=== PATIENT | male | born 2005 | race Caucasian/White ===

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

== ENCOUNTER → 2023-04-10 | Outpatient (CLI) | payer OTHER ==
--- NOTE | 2023-04-10 12:11 | XR ---
EXAMINATION TYPE: XR lumbar spine 2 or 3V DATE OF EXAM: 04/10/2023 COMPARISON: None HISTORY: Back pain TECHNIQUE: 3 view lumbar spine FINDINGS: 5 lumbar type vertebral bodies. Pedicles are intact. Disc heights are preserved. Vertebral body heights are preserved. Alignment is normal. There is a 1.6 cm calcification mid right kidney. IMPRESSION: 1. Unremarkable three-view lumbar spine. 2. Right renal calcification
== END | disposition home or self-care (01) ==
LOC: RADXRMAIN 11:24
PROVIDERS: ATTEND Nurse Practitioner Family
DX: M54.9 Dorsalgia, unspecified (principal); N28.89 Other specified disorders of kidney and ureter
CPT/HCPCS: 72100

== ENCOUNTER → 2023-05-05 | Outpatient (CLI) | payer OTHER ==
[2023-05-05 18:50] LABS: Basophils # (A) 0.05 X 10*3/uL (0.00-0.10); Basophils % (A) 0.6 %; Eosinophils # (A) 0.08 X 10*3/uL (0.04-0.35); Eosinophils % (A) 0.9 %; HCT 43.5 % (39.6-50.0); HGB 14.8 g/dL (13.0-17.0); Lymphocytes # (A) 2.77 X 10*3/uL (0.90-5.00); Lymphocytes % (A) 31.2 %; MCH 29.2 pg (27.0-32.0); Mean Platelet Volume 11.8 FL (9.5-12.2); Monocytes # (A) 0.48 X 10*3/uL (0.20-1.00); Monocytes % (A) 5.4 %; NRBC Per 100 WBC 0 X 10*3/uL (0.00-0.01); Neutrophils # (A) 5.46 X 10*3/uL (1.80-7.70); Neutrophils % (A) 61.6 %; Platelet Count 350 X 10*3/uL (140-440); RBC 5.06 X 10*6/uL (4.40-5.60); RDW 13.2 % (11.5-14.5); WBC 8.87 X 10*3/uL (4.50-10.00)
[2023-05-05 20:06] LABS: BUN/Creat Ratio 12.56 Ratio (12.00-20.00); Blood Urea Nitrogen 11.3 mg/dL (9.0-27.0); Calcium 10.3 mg/dL (8.7-10.3); Carbon Dioxide 22.7 mmol/L (21.6-31.8); Chloride 103 mmol/L (96-109); Glucose 185 mg/dL (70-110); Potassium 4.5 mmol/L (3.5-5.5); Sodium 140 mmol/L (135-145)
== END | disposition home or self-care (01) ==
LOC: LABWHC1 13:43
PROVIDERS: ATTEND Urology
DX: Z01.812 Encounter for preprocedural laboratory examination (principal); N20.0 Calculus of kidney
CPT/HCPCS: 80048; 85025

== ENCOUNTER 2023-05-08 05:47 | Day surgery (SDC) | payer OTHER ==
--- NOTE | 2023-05-05 16:27 | P.GSHP ---
History of Present Illness H&P Date: 05/05/23 Chief Complaint: Low back pain The patient is a 17-year-old white male with no prior history of urolithiasis. The patient is recently experienced low back pain. Renal ultrasound shows a right renal calculus, with no evidence of hydronephrosis. KUB x-ray shows a 16 mm right renal calculus. He does have a family history of kidney stones. - Constitutional Constitutional: Denies chills, Denies fever - Gastrointestinal Gastrointestinal: Reports nausea - Genitourinary (Male) Genitourinary: Reports dysuria, Reports kidney stones, Denies hematuria Past Medical History Past Medical History: No Reported History, Diabetes Mellitus, GERD/Reflux, Hyperlipidemia, Hypertension Additional Past Medical History / Comment(s): kidney stones. History of Any Multi-Drug Resistant Organisms: None Reported Past Surgical History: No Surgical Hx Reported Additional Past Surgical History / Comment(s): wisdom teeth removed Past Anesthesia/Blood Transfusion Reactions: No Reported Reaction Smoking Status: Never smoker - Past Family History Father Family Medical History: Diabetes Mellitus Additional Family Medical History / Comment(s): gout Mother Family Medical History: Diabetes Mellitus, Hypertension Medications and Allergies Home Medications Medication Instructions Recorded Confirmed Type Lisdexamfetamine Dimesylate 60 mg PO QA 03/19/19 05/02/23 History [Vyvanse] ARIPiprazole [Aripiprazole] 20 mg PO DAILY 05/02/23 05/02/23 History Fenofibrate Nanocrystallized 145 mg PO DAILY 05/02/23 05/02/23 History [Fenofibrate] Omeprazole 20 mg PO HS 05/02/23 05/02/23 History Sertraline [Zoloft] 100 mg PO DAILY 05/02/23 05/02/23 History guanFACINE HCL [guanFACINE HCL ER] 4 mg PO DAILY 05/02/23 05/02/23 History lisinopriL [Zestril] 10 mg PO HS 05/02/23 05/02/23 History metFORMIN HCL ER [Glucophage XR] 1,000 mg PO HS 05/02/23 05/02/23 History Allergies Allergy/AdvReac Type Severity Reaction Status Date / Time amoxicillin Allergy Rash/Hives Verified 05/02/23 12:14 Penicillins Allergy Rash/Hives Verified 05/02/23 12:14 Surgical - Exam - General well developed, well nourished, no distress - Respiratory normal respiratory effort - Abdomen Abdomen: soft, non tender, no guarding, no rigid, no rebound - Genitourinary normal penis with no external lesions, testicles non-tender - Psychiatric oriented to time, oriented to person, oriented to place, speech is normal, memory intact Results - Imaging Abdominal x-ray: report reviewed, image reviewed Assessment and Plan (1) Calculus of kidney Status: Acute Code(s): N20.0 - CALCULUS OF KIDNEY SNOMED Code(s): 86434568 Plan: I had a lengthy discussion with the patient and his mother. We reviewed alternative treatment options, which consist of observation, extracorporal shockwave lithotripsy (ESWL), ureteroscopy with laser lithotripsy, and percutaneous nephrolithotomy (PCNL). The pros, cons, and risks of each were reviewed. The pros, cons, and risks of each were reviewed. They have chosen to undergo ureteroscopy with laser lithotripsy and stent placement. They are aware of potential risks, which include anesthesia, bleeding, infection, and ureteral injury. They are also aware of the possibility that because of the stone burden, a secondary procedure may be required.
[2023-05-08] MEDS ORDERED: LACTATED RINGERS 1,000 ML IV SCH (06:20)
[2023-05-08] MEDS ORDERED: ONDANSETRON 4 MG/2 ML VIAL IVP ONE (06:20)
[2023-05-08] MEDS ORDERED: LIDOCAINE 1% (10MG/ML) FOR IV START INTRADERMA PRN (06:20)
[2023-05-08] MEDS ORDERED: droPERidol 5 MG/2 ML VIAL IVP ONE (06:20)
--- NOTE | 2023-05-08 06:21 | XR ---
EXAMINATION TYPE: XR KUB DATE OF EXAM: 05/08/2023 6:14 AM CLINICAL HISTORY: Right renal calculi. Presurgical study. TECHNIQUE: Two supine KUB images of the abdomen are obtained. COMPARISON: None. FINDINGS: There is roughly 11 mm calculus centrally midpole level right kidney at the inferior L1 lev el. No left-sided nephrolithiasis. Overall nonobstructive bowel gas pattern. Osseous structures are intact. IMPRESSION: As above.
[2023-05-08] MEDS ORDERED: HYDROmorphone 0.5 MG/0.5 ML SYRINGE IVP PRN (07:00)
[2023-05-08] MEDS ORDERED: DEXAMETHASONE SOD PHOSPHATE 4 MG/ML 1 ML VIAL IVP ONE (07:19)
[2023-05-08 07:21] LABS: Glucose,Whole Blood 137 mg/dL (70-110)
[2023-05-08] MEDS ORDERED: NEOSTIGMINE 1 MG/ML 10 ML VIAL ONE (07:28)
[2023-05-08] MEDS ORDERED: MIDAZOLAM 2 MG/2 ML VIAL ONE (07:28)
[2023-05-08] MEDS ORDERED: ROCURONIUM 10 MG/ML (5 ML VIAL) IV ONE (07:28)
[2023-05-08] MEDS ORDERED: PROPOFOL 10 MG/ML 20 ML VIAL IV ONE (07:28)
[2023-05-08] MEDS ORDERED: GLYCOPYRROLATE 0.2 MG/ML 2 ML VIAL ONE (07:28)
[2023-05-08] MEDS ORDERED: fentaNYL (PF) 50 MCG/ML 2 ML AMP ONE (07:28)
[2023-05-08] MEDS ORDERED: LIDOCAINE 1% INJ 10MG/ML (20 ML MDV) ONE (07:28)
[2023-05-08] MEDS ORDERED: SUCCINYLCHOLINE CHLORIDE 200 MG/10 ML VIAL IV ONE (07:28)
[2023-05-08] MEDS ORDERED: PHENYLEPHRINE-0.9% NACL SYG 1,000 MCG/10 ML SYRINGE ONE (07:28)
--- NOTE | 2023-05-08 09:59 | P.OP ---
Date of Procedure: 05/08/23 Preoperative Diagnosis: Right renal calculus Postoperative Diagnosis: Same Procedure(s) Performed: Cystoscopy, right ureteroscopy with Holmium laser lithotripsy and stone basketing, right ureteral stent insertion Anesthesia: GILSON Surgeon: Sundeep Zuluaga Estimated Blood Loss (ml): 20 IV fluids (ml): 500 Pathology: none sent Condition: stable Disposition: PACU Indications for Procedure: The patient is a 17-year-old white male with no prior history of urolithiasis. The patient is recently experienced low back pain. Renal ultrasound shows a right renal calculus, with no evidence of hydronephrosis. KUB x-ray shows a 16 mm right renal calculus. He does have a family history of kidney stones. Operative Findings: Right renal calculus, fragmented and basketed. One residual fragment. Description of Procedure: The patient was taken to the operating room and placed in the dorsolithotomy position, with legs supported in Tera stirrups. The external genitalia was prepped and draped sterilely. The 30 lens was used to introduce the 21-Sammarinese Andrea cystoscopic sheath through the urethra and into the bladder under direct vision. The prostatic urethra was normal. The bladder was examined in its entirety. Both ureteral orifices were normal anatomic location and configuration, and clear urine effluxed from both. No tumors or foreign bodies were seen. A 0.038 inch Glidewire was passed through the cystoscope. The right ureteral orifice was cannulated, and the Glidewire was advanced up to the renal pelvis. The cystoscope was removed, and an 11/13-Sammarinese ureteral access catheter was passed over the wire, up to the proximal ureter. The Andrea Cobra flexible ureteroscope was then passed through the ureteral access catheter sheath, up to the renal pelvis. Each calyx was examined. The calculus was identified within a mid to upper pole calyx, tucked away such that only the edge of the calculus was visible. The 272 micron Holmium laser probe was passed through the ureteroscope, and lithotripsy was performed utilizing a dusting mode. Once the visible portion of the calculus had been lasered, the tip of the laser probe was used to reposition the calculus so that more of the calculus could be treated. Ultimately, the calculus was broken into several fragments and a 1.9 Sammarinese nitinol basket was used to individually relocate these calculus fragments into an upper pole calyx, where lithotripsy could be performed. Larger fragments were removed using the 1.9 Sammarinese nitinol basket. Some bleeding was present within the calyx where the calculus was located, and the last fragment seen on fluoroscopy could not be located due to clot within that calyx. Ultimately, it was decided to terminate the procedure. Pullout ureteroscopy showed no evidence of ureteral trauma. The cystoscope was replaced into the bladder. A 24 cm, 4.8 Sammarinese double-J ureteral stent was placed in the standard fashion. Proper stent positioning was verified fluoroscopically and endoscopically. The bladder was emptied and the cystoscope removed. The patient tolerated the procedure well and was taken to the recovery room in stable condition. [facility] [place] [facility] Report: Procedure Acuity: Elective Stone Size and Location: 11 mm, right midpole calculus Ureteral Dilation: No Ureteral Access Sheath Used: Yes Stone Sent for Analysis: Yes All Stones/Fragments Were Removed with a Basket: No Complications: No Preoperative Antibiotics Given: Yes Stent Placed: Yes If Stent Placed, Was String Left Attached: No If Stent Placed, When is it to be Removed: 2 weeks Discharge Medications: Tamsulosin
[2023-05-08 10:06] VITALS: TEMP 97
[2023-05-08 11:17] VITALS: BP 143/70; PULSE 113; RESP 16
--- NOTE | 2023-05-08 13:32 | FL ---
EXAMINATION TYPE: FL guidance operating room Intraoperative/procedural fluoroscopic services were pro vided. Total fluoroscopy time is 32.7 seconds with a total of 10 submitted images to PACS. Please see the operative/procedural note for further details. DAP: 5.67 Gycm2
== END 2023-05-08 11:07 | disposition home or self-care (01) ==
LOC: OR 05:47
PROVIDERS: ATTEND Urology
DX: N20.0 Calculus of kidney (principal); I10 Essential (primary) hypertension; E78.5 Hyperlipidemia, unspecified; E11.9 Type 2 diabetes mellitus without complications; F90.9 Attention-deficit hyperactivity disorder, unspecified type; K21.9 Gastro-esophageal reflux disease without esophagitis; Z79.84 Long term (current) use of oral hypoglycemic drugs; Z79.899 Other long term (current) drug therapy; Z87.442 Personal history of urinary calculi; Z83.3 Family history of diabetes mellitus; Z88.0 Allergy status to penicillin
CPT/HCPCS: 52356; 82365; 74018; C2625; C1894; J2250; J0330; J1100; J2710; J0690; J2405; J2001; J3010; J2704; J2371

== ENCOUNTER 2023-05-19 13:48 | Emergency (ER) | payer OTHER ==
[2023-05-19 16:46] LABS: Amphetamine Screen,Urine Detected (NotDetected); Benzodiazepines Screen,Urine Not Detected (NotDetected); Cocaine Screen,Urine Not Detected (NotDetected); Methadone Screen, Urine Not Detected (NotDetected); Opiate Screen,Urine Not Detected (NotDetected); Phencyclidine Screen,Urine Not Detected (NotDetected); Tricyclic Antidepressant,Urine Not Detected (NotDetected); Urn Cannabinoid Scrn Not Detected (NotDetected)
[2023-05-19 16:47] LABS: Barbiturate Screen,Urine Not Detected (NotDetected); Oxycodone Screen, Urine Not Detected (NotDetected)
--- NOTE | 2023-05-19 17:05 | ED ---
General Adult HPI - General Chief complaint: Psychiatric Symptoms Stated complaint: Suicidal Time Seen by Provider: 05/19/23 15:09 Source: patient, RN notes reviewed, old records reviewed Mode of arrival: ambulatory Limitations: no limitations - History of Present Illness Initial comments: This is a 17-year-old male who presents to the emergency department complaining that he is suicidal. Patient states he has bipolar ADHD and autism. Patient states he was thinking of taking a bunch of pills to kill himself. Because patient states that he does not want to live with his mother and his stepfather any longer and this has been ongoing for 2 years and no one can find a place to live. Patient states he is not taking his medications as prescribed and that is one of the reasons none of the group homes want to take it. Patient also does not try to seek out employment so that he can afford a place on his own. 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 Patient states he lacks discipline and motivation. - Related Data Home Medications Medication Instructions Recorded Confirmed Lisdexamfetamine Dimesylate 60 mg PO DAILY 03/19/19 05/19/23 [Vyvanse] ARIPiprazole [Aripiprazole] 20 mg PO DAILY 05/02/23 05/19/23 Fenofibrate Nanocrystallized 145 mg PO DAILY 05/02/23 05/19/23 [Fenofibrate] Omeprazole 20 mg PO HS 05/02/23 05/19/23 Sertraline [Zoloft] 100 mg PO DAILY 05/02/23 05/19/23 guanFACINE HCL [guanFACINE HCL ER] 4 mg PO DAILY 05/02/23 05/19/23 lisinopriL [Zestril] 20 mg PO HS 05/19/23 05/19/23 metFORMIN HCL [metFORMIN HCL ER 1,000 mg PO HS 05/19/23 05/19/23 Gastric] sitaGLIPtin [Januvia] 50 mg PO DAILY 05/19/23 05/19/23 Previous Rx's Medication Instructions Recorded Ketorolac [Toradol] 10 mg PO Q6HR PRN #10 tab 05/08/23 Allergies Allergy/AdvReac Type Severity Reaction Status Date / Time amoxicillin Allergy Rash/Hives Verified 05/19/23 15:56 Penicillins Allergy Rash/Hives Verified 05/19/23 15:56 Review of Systems ROS Statement: Those systems with pertinent positive or pertinent negative responses have been documented in the HPI. ROS Other: All systems not noted in ROS Statement are negative. Past Medical History Past Medical History: No Reported History History of Any Multi-Drug Resistant Organisms: None Reported Past Surgical History: No Surgical Hx Reported Past Psychological History: ADD/ADHD Smoking Status: Never smoker Past Alcohol Use History: None Reported Past Drug Use History: None Reported General Exam - General Exam Comments Initial Comments: GENERAL: Patient is well-developed and well-nourished. Patient is nontoxic and well- hydrated and is in no acute distress. ENT: Neck is soft and supple. No significant lymphadenopathy is noted. Oropharynx is clear. Moist mucous membranes. Neck has full range of motion without eliciting any pain. EYES: The sclera were anicteric and conjunctiva were pink and moist. Extraocular movements were intact and pupils were equal round and reactive to light. Eyelids were unremarkable. PULMONARY: Unlabored respirations. Good breath sounds bilaterally. No audible rales r honchi or wheezing was noted. CARDIOVASCULAR: There is a regular rate and rhythm without any murmurs gallops or rubs. ABDOMEN: Soft and nontender with normal bowel sounds. SKIN: Skin is clear with no lesions or rashes and otherwise unremarkable. NEUROLOGIC: Patient is alert and oriented x3. Cranial nerves II through XII are grossly intact. Motor and sensory are also intact. Normal speech, volume and content. Symmetrical smile. MUSCULOSKELETAL: Normal extremities with adequate strength and full range of motion. LYMPHATICS: No significant lymphadenopathy is noted PSYCHIATRIC: Patient states he is suicidal Limitations: no limitations Course Vital Signs 05/19/23 13:50 Temperature 98.5 F Pulse Rate 94 Respiratory 16 Rate Blood Pressure 135/92 O2 Sat by Pulse 100 Oximetry Medical Decision Making - Medical Decision Making Was pt. sent in by a medical professional or institution (, PA, OVERWEAVER, urgent care, hospital, or residential...) When possible be specific @ -No Did you speak to anyone other than the patient for history (EMS, parent, family, police, friend...)? What history was obtained from this source @ -Grandmother gives quite a bit of the history Did you review nursing and triage notes (agree or disagree)? Why? @ -I reviewed and agree with nursing and triage notes Were old charts reviewed (outside hosp., previous admission, EMS record, old EKG, old radiological studies, urgent care reports/EKG's, residential records)? Report findings @ -No old charts were reviewed Differential Diagnosis (chest pain, altered mental status, abdominal pain women, abdominal pain men, vaginal bleeding, weakness, fever, dyspnea, syncope, headache, dizziness, GI bleed, back pain, seizure, CVA, palpatations, mental health, musculoskeletal)? @ -Differential Mental Health Depression, anxiety, bipolar, psychosis, schizophrenia, borderline personality, situational depression, adjustment disorder, behavioral disorder, brain tumor, malingering, substance abuse, encephalopathy, medication reaction, dementia, hypothyroidism, degenerative neurologic disorder, lupus.... This is not meant to be all-inclusive list EKG interpreted by me (3pts min.). @ -As above X-rays interpreted by me (1pt min.). @ -None done CT interpreted by me (1pt min.). @ -None done U/S interpreted by me (1pt. min.). @ -None done What testing was considered but not performed or refused? (CT, X-rays, U/S, labs)? Why? @ -None What meds were considered but not given or refused? Why? @ -None Did you discuss the management of the patient with other professionals (professionals i.e. , PA, OVERWEAVER, lab, RT, psych nurse, high school social studies teacher, floor mechanic, teacher, guest services officer, hospice case manager)? Give summary @ -I spoke with the EPS nurse about this case Was smoking cessation discussed for >3mins.? @ -No Was critical care preformed (if so, how long)? @ -No Were there social determinants of health that impacted care today? How? (Homelessness, low income, unemployed, alcoholism, drug addiction, transportation, low edu. Level, literacy, decrease access to med. care, senior living, rehab)? @ -No Was there de-escalation of care discussed even if they declined (Discuss DNR or withdrawal of care, Hospice)? DNR status @ -No What co-morbidities impacted this encounter? (DM, HTN, Smoking, COPD, CAD, Cancer, CVA, ARF, Chemo, Hep., AIDS, mental health diagnosis, sleep apnea, morbid obesity)? @ -None Was patient admitted / discharged? Hospital course, mention meds given and route, prescriptions, significant lab abnormalities, going to OR and other pertinent info. @ -After the EPS nurse spoke to the patient and spoke with psychiatrist it was determined that the patient needed to be admitted so the patient will be transferred to another facility. I filled out a clinical certification. Undiagnosed new problem with uncertain prognosis? @ -No Drug Therapy requiring intensive monitoring for toxicity (Heparin, Nitro, Insulin, Cardizem)? @ -No Were any procedures done? @ -No Diagnosis/symptom? @ -Suicidal ideations, depression Acute, or Chronic, or Acute on Chronic? @ -Acute Uncomplicated (without systemic symptoms) or Complicated (systemic symptoms)? @ -Complicated Side effects of treatment? @ -No Exacerbation, Progression, or Severe Exacerbation? @ -No Poses a threat to life or bodily function? How? (Chest pain, USA, CA, pneumonia, PE, COPD, DKA, ARF, appy, cholecystitis, CVA, Diverticulitis, Homicidal, Suicidal, threat to staff... and all critical care pts) @ -No - Lab Data Lab Results 05/19/23 Range/Units 15:56 Urine Opiates Screen Not Detected (NotDetected) Ur Oxycodone Screen Not Detected (NotDetected) Urine Methadone Screen Not Detected (NotDetected) Ur Barbiturates Screen Not Detected (NotDetected) U Tricyclic Antidepress Not Detected (NotDetected) Ur Phencyclidine Scrn Not Detected (NotDetected) Ur Amphetamines Screen Detected H (NotDetected) U Methamphetamines Scrn Not Detected (NotDetected) U Benzodiazepines Scrn Not Detected (NotDetected) Urine Cocaine Screen Not Detected (NotDetected) U Marijuana (THC) Screen Not Detected (NotDetected) Disposition Clinical Impression: Depression, Suicidal ideation Disposition: TRANSFER TO PSYCH HOSP/UNIT Referrals: Aydee Donis MD [Primary Care Provider] - 1-2 days Time of Disposition: 19:28
[2023-05-19] MEDS: lisinopriL 20 MG TAB PO SCH (21:14)
[2023-05-19] MEDS: metFORMIN 500 MG TAB PO SCH (21:14)
[2023-05-19] MEDS: PANTOPRAZOLE 40 MG TABLET PO SCH (21:14)
[2023-05-20 06:47] LABS: Basophils # (A) 0.1 k/uL (0-0.2); Basophils % (A) 1 %; Eosinophils # (A) 0.2 k/uL (0-0.7); Eosinophils % (A) 2 %; HCT 43.4 % (39.0-53.0); HGB 14.6 gm/dL (13.0-17.5); Lymphocytes # (A) 3.8 k/uL (1.0-4.8); Lymphocytes % (A) 36 %; MCH 29.4 pg (25.0-35.0); MCHC 33.6 g/dL (31.0-37.0); MCV 87.5 fL (80.0-100.0); Mean Platelet Volume 8.4; Monocytes # (A) 0.5 k/uL (0-1.0); Monocytes % (A) 5 %; Neutrophils # (A) 5.9 k/uL (1.3-7.7); Neutrophils % (A) 55 %; Platelet Count 318 k/uL (150-450); RBC 4.96 m/uL (4.30-5.90); RDW 13.2 % (11.5-15.5); WBC 10.7 k/uL (4.0-11.0)
[2023-05-20 06:50] VITALS: RESP 17
[2023-05-20 06:57] LABS: ALT 43 U/L (4-49); AST 33 U/L (17-59); African American GFR (CKD) >90 (>60 ml/min/1.73 sqM); Albumin 4.6 g/dL (3.5-5.0); Alkaline Phosphatase 69 U/L (38-126); Anion Gap 9 mmol/L; Blood Urea Nitrogen 14 mg/dL (9-20); Calcium 9.9 mg/dL (8.4-10.2); Carbon Dioxide 23 mmol/L (22-30); Chloride 105 mmol/L (98-107); Glucose 133 mg/dL (74-99); Non-African American GFR(CKD) >90 (>60 ml/min/1.73 sqM); Potassium 4.5 mmol/L (3.5-5.1); Sodium 137 mmol/L (137-145); Total Bilirubin 0.5 mg/dL (0.2-1.3); Total Protein 7.4 g/dL (6.3-8.2)
[2023-05-20 07:04] LABS: Appearance,Urine Cloudy (Clear); Bacteria,Urine Occasional /hpf; Bilirubin,Urine Negative (Negative); Blood,Urine Large (Negative); Color,Urine Light Yellow; Glucose,Urine (UA) Negative (Negative); Ketones,Urine Negative (Negative); Leukocyte Esterase,Urine Large (Negative); Mucus,Urine Occasional /hpf; Nitrite,Urine Negative (Negative); PH, Urine 6.5 (5.0-8.0); Protein,Urine 1+ (Negative); RBC,Urine >182 /hpf (0-5); Specific Gravity,Urine 1.016 (1.001-1.035); Squamous Epithelial Cell,Urine <1 /hpf (0-4); Urobilinogen,Urine <2.0 mg/dL (<2.0); WBC,Urine 73 /hpf (0-5)
[2023-05-20 18:34] VITALS: BP 107/69; PULSE 91; TEMP 97.7
== END 2023-05-20 19:10 ==
LOC: EC 13:48
DX: F32.A Depression, unspecified (principal); F90.9 Attention-deficit hyperactivity disorder, unspecified type; Z20.822 Contact with and (suspected) exposure to COVID-19; Z79.899 Other long term (current) drug therapy; Z88.0 Allergy status to penicillin
CPT/HCPCS: 36415; 80053; 80306; 81001; 82075; 85025; 87636; 99285

== ENCOUNTER 2023-06-05 07:11 | Day surgery (SDC) | payer OTHER ==
--- NOTE | 2023-05-18 10:11 | P.GSHP ---
History of Present Illness H&P Date: 05/18/23 Chief Complaint: Low back pain The patient is a 17-year-old white male with no prior history of urolithiasis. The patient is recently experienced low back pain. Renal ultrasound shows a right renal calculus, with no evidence of hydronephrosis. KUB x-ray shows a 16 mm right renal calculus. He does have a family history of kidney stones. On May 08, 2023 he underwent ureteroscopy with laser lithotripsy. There appeared to be a residual stone fragment, and a ureteral stent was placed. He now comes for removal of any remaining fragments. - Constitutional Constitutional: Denies chills, Denies fever - Gastrointestinal Gastrointestinal: Reports nausea - Genitourinary (Male) Genitourinary: Reports dysuria, Reports kidney stones Past Medical History Past Medical History: No Reported History History of Any Multi-Drug Resistant Organisms: None Reported Past Surgical History: No Surgical Hx Reported Past Psychological History: ADD/ADHD Past Alcohol Use History: None Reported Past Drug Use History: None Reported Medications and Allergies Home Medications Medication Instructions Recorded Confirmed Type Lisdexamfetamine Dimesylate 60 mg PO [facility] 03/19/19 05/02/23 History [Vyvanse] ARIPiprazole [Aripiprazole] 20 mg PO DAILY 05/02/23 05/02/23 History Fenofibrate Nanocrystallized 145 mg PO DAILY 05/02/23 05/02/23 History [Fenofibrate] Omeprazole 20 mg PO HS 05/02/23 05/02/23 History Sertraline [Zoloft] 100 mg PO DAILY 05/02/23 05/02/23 History guanFACINE HCL [guanFACINE HCL ER] 4 mg PO DAILY 05/02/23 05/02/23 History lisinopriL [Zestril] 10 mg PO HS 05/02/23 05/02/23 History metFORMIN HCL ER [Glucophage XR] 1,000 mg PO HS 05/02/23 05/02/23 History Ketorolac [Toradol] 10 mg PO Q6HR PRN #10 tab 05/08/23 Rx Allergies Allergy/AdvReac Type Severity Reaction Status Date / Time amoxicillin Allergy Rash/Hives Verified 05/08/23 06:45 Penicillins Allergy Rash/Hives Verified 05/08/23 06:45 Surgical - Exam - General well developed, well nourished, no distress - Respiratory normal respiratory effort - Abdomen Abdomen: soft, non tender, no guarding, no rigid, no rebound - Genitourinary normal penis with no external lesions, testicles non-tender - Psychiatric oriented to time, oriented to person, oriented to place, speech is normal, memory intact Results - Imaging Abdominal x-ray: report reviewed, image reviewed Assessment and Plan (1) Calculus of kidney Status: Acute Code(s): N20.0 - CALCULUS OF KIDNEY SNOMED Code(s): 93939827 Plan: Cystoscopy, right ureteral stent removal, right ureteroscopy with Holmium laser lithotripsy and/or stone basketing to remove residual fragments. Patient is aware of potential risks, which include anesthesia, bleeding, infection, ureteral injury, and inability to remove all residual fragments.
[2023-06-04 09:55] VITALS: BMI 43.9
[~2023-06-05 07:11] MED LIST: HYDROmorphone 0.5 MG/0.5 ML SYRINGE IVP PRN; LIDOCAINE 1% (10MG/ML) FOR IV START INTRADERMA PRN; SCOPOLAMINE 1 MG/72 HR PATCH TRANSDERM ONE; droPERidol 5 MG/2 ML VIAL IVP ONE
[2023-06-05 08:01] LABS: Glucose,Whole Blood 155 mg/dL (70-110)
[2023-06-05] MEDS: LACTATED RINGERS 1,000 ML IV SCH (08:02)
[2023-06-05] MEDS: ONDANSETRON 4 MG/2 ML VIAL IVP ONE (08:06)
[2023-06-05] MEDS: DEXAMETHASONE SOD PHOSPHATE 4 MG/ML 1 ML VIAL IV ONE (08:06)
[2023-06-05] MEDS: MIDAZOLAM 2 MG/2 ML VIAL IVP ONE (08:06)
[2023-06-05] MEDS ORDERED: MIDAZOLAM 2 MG/2 ML VIAL ONE (09:22)
[2023-06-05] MEDS ORDERED: LIDOCAINE 1% INJ 10MG/ML (20 ML MDV) ONE (09:22)
[2023-06-05] MEDS ORDERED: KETOROLAC 15 MG/ML 1 ML VIAL ONE (09:22)
[2023-06-05] MEDS ORDERED: ROCURONIUM 10 MG/ML (5 ML VIAL) IV ONE (09:22)
[2023-06-05] MEDS ORDERED: GLYCOPYRROLATE 0.2 MG/ML 2 ML VIAL ONE (09:22)
[2023-06-05] MEDS ORDERED: NEOSTIGMINE 1 MG/ML 10 ML VIAL ONE (09:22)
[2023-06-05] MEDS ORDERED: PROPOFOL 10 MG/ML 20 ML VIAL IV ONE (09:22)
[2023-06-05] MEDS ORDERED: fentaNYL (PF) 50 MCG/ML 2 ML AMP ONE (09:22)
[2023-06-05] MEDS ORDERED: SUCCINYLCHOLINE CHLORIDE 200 MG/10 ML VIAL IV ONE (09:22)
--- NOTE | 2023-06-05 09:41 | XR ---
EXAMINATION TYPE: XR KUB DATE OF EXAM: 06/05/2023 Comparison: 05/08/2023 Clinical History: 17-year-old male N20.0 right renal calculus Findings: Right ureteral stent in place. The previous right renal stone is smaller measuring 5 mm now versus 1. 1 cm, previously. Nonobstructive bowel gas pattern. Scattered mild stool. The proximal loop of the ri ght ureteral stent is partially uncurled. Impression: 1. 5 mm right renal stone remains after placement of right ureteral stent. Previously measuring 1.1 c m. 2. Incidentally, the proximal loop of the stent is partially uncurled.
--- NOTE | 2023-06-05 10:35 | P.OP ---
Date of Procedure: 06/05/23 Preoperative Diagnosis: Right renal calculus Postoperative Diagnosis: Same Procedure(s) Performed: Cystoscopy, right ureteral stent removal, right ureteroscopy with laser infundibulotomy. Anesthesia: GETA Surgeon: Sundeep Zuluaga Estimated Blood Loss (ml): 10 IV fluids (ml): 500 Pathology: none sent Condition: stable Disposition: PACU Indications for Procedure: The patient is a 17-year-old white male with no prior history of urolithiasis. The patient is recently experienced low back pain. Renal ultrasound shows a right renal calculus, with no evidence of hydronephrosis. KUB x-ray shows a 16 mm right renal calculus. He does have a family history of kidney stones. On May 08, 2023 he underwent ureteroscopy with laser lithotripsy. There appeared to be a residual stone fragment, and a ureteral stent was placed. He now comes for removal of any remaining fragments. Operative Findings: Radiopaque density overlying right kidney seen on fluoroscopy. No calculus seen endoscopically. Description of Procedure: The patient was taken to the operating room and placed in the dorsolithotomy position, with legs supported in Tera stirrups. The external genitalia was prepped and draped sterilely. The 30 lens was used to introduce the 21-Burmese Andrea cystoscopic sheath through the urethra and into the bladder under direct vision. The prostatic urethra showed evidence of a high median bar but was otherwise unremarkable. Upon entering the bladder, the distal end of the right ureteral stent was readily visualized. The distal end of the stent was grasped with a grasping forceps and removed along with the cystoscope. A 0.035 inch Glidewire was passed through the stent and up to the right renal pelvis. The stent was removed, and an 11/13-Burmese ureteral access catheter was passed over the wire, up to the proximal ureter. The Andrea [employer] flexible ureteroscope was then passed through the ureteral access catheter sheath, up to the renal pelvis. Each calyx was examined. No calculi were seen. Fluoroscopy showed a density overlying the right kidney. This was localized to a midpole calyx which appeared to be where the stone was originally located. A narrowed infundibulum was seen, suggesting that the calculus might be within a calyceal diverticulum. An infundibulum at [facility] was performed using the 200 micron Holmium laser probe, but a calculus was not seen. Pullout ureteroscopy showed no calculi within the ureter, and no evidence of ureteral trauma. The patient tolerated the procedure well and was taken to the recovery room in stable condition.
[2023-06-05 10:42] LABS: Glucose,Whole Blood 186 mg/dL (70-110)
[2023-06-05 11:04] VITALS: RESP 18; TEMP 97.9
[2023-06-05 11:38] VITALS: BP 105/58; PULSE 71
--- NOTE | 2023-06-05 12:58 | FL ---
EXAMINATION TYPE: FL guidance operating room Intraoperative/procedural fluoroscopic services were pro vided. Total fluoroscopy time is 65.7 seconds with a total of 2 submitted images to PACS. Please see the operative/procedural note for further details. DAP: [id number] mGym2
== END 2023-06-05 11:48 | disposition home or self-care (01) ==
LOC: OR 07:11
PROVIDERS: ATTEND Urology
DX: N20.0 Calculus of kidney (principal); F90.9 Attention-deficit hyperactivity disorder, unspecified type; Z88.0 Allergy status to penicillin; Z79.899 Other long term (current) drug therapy
CPT/HCPCS: 52353; 74018; C1769; J2250; J0330; J1100; J2710; J0690; J2405; J2001; J3010; J1885; J2704

== ENCOUNTER → 2023-09-16 | Outpatient (CLI) | payer OTHER ==
[2023-09-16 18:39] LABS: Basophils # (A) 0.08 X 10*3/uL (0.00-0.10); Basophils % (A) 0.7 %; Eosinophils # (A) 0.07 X 10*3/uL (0.04-0.35); Eosinophils % (A) 0.6 %; HCT 47.3 % (39.6-50.0); HGB 15.6 g/dL (13.0-17.0); Lymphocytes # (A) 3.09 X 10*3/uL (0.90-5.00); MCH 29.3 pg (27.0-32.0); MCV 88.7 FL (80.0-97.0); Mean Platelet Volume 11.2 FL (9.5-12.2); Monocytes % (A) 7.3 %; NRBC Per 100 WBC 0 X 10*3/uL (0.00-0.01); Neutrophils # (A) 6.91 X 10*3/uL (1.80-7.70); Neutrophils % (A) 62.8 %; Platelet Count 329 X 10*3/uL (140-440); RBC 5.33 X 10*6/uL (4.40-5.60); RDW 13.3 % (11.5-14.5); WBC 11.02 X 10*3/uL (4.50-10.00)
== END | disposition home or self-care (01) ==
LOC: LABWHC1 13:33
PROVIDERS: ATTEND Internal Medicine Geriatric Medicine
DX: E11.65 Type 2 diabetes mellitus with hyperglycemia (principal)
CPT/HCPCS: 36415; 83036; 85025

== ENCOUNTER → 2023-10-28 | Outpatient (CLI) | payer OTHER ==
--- NOTE | 2023-10-28 16:31 | XR ---
EXAMINATION TYPE: XR chest 2V DATE OF EXAM: 10/28/2023 3:49 PM CLINICAL INDICATION:Male, 18 years old with history of SOB. R06.02; [facility] COMPARISON: Chest radiographs from 05/28/2012. TECHNIQUE: XR chest 2V Frontal view of the chest. FINDINGS: Lungs/Pleura: There is no evidence of pleural effusion, focal consolidation, or pneumothorax. Pulmonary vascularity: Unremarkable. Heart/mediastinum: Cardiomediastinal silhouette is unremarkable. Musculoskeletal: No acute osseous pathology. Other findings: None IMPRESSION: No acute cardiopulmonary disease/process.
--- NOTE | 2023-10-28 17:29 | CA ---
Transthoracic Echo Report Name: Jean Mclaughlin Age: 18 Gender: M : 2005 Exam Date: 10/28/2023 15:09 Exam Location: [facility] Ht (in): 66 Wt (lb): 256 Ordering Physician: Joe Christianson MD Attending/Referring Phys: Cecilia Rios [facility] Field Nurse Case Manager Shazia Fleming RDCS Procedure CPT: Indications: R06.02 SHORTNESS OF BREATH Cardiac Hx: Technical Quality: Technically difficult study Contrast 1: Total Dose (mL): Contrast 2: Total Dose (mL): MEASUREMENTS (Male / Female) Normal Values 2D ECHO LV Diastolic Diameter PLAX 4.7 cm 4.2 - 5.9 / 3.9 - 5.3 cm LV Systolic Diameter PLAX 2.8 cm IVS Diastolic Thickness 0.7 cm 0.6 - 1.0 / 0.6 - 0.9 cm LVPW Diastolic Thickness 1.0 cm 0.6 - 1.0 / 0.6 - 0.9 cm LV Relative Wall Thickness 0.4 LVOT Diameter 2.3 cm LA Volume 36.7 cm??? 18 - 58 / 22 - 52 cm??? LA Volume Index 15.4 cm???/m??? 16 - 28 cm???/m??? Ascending Aorta Diameter 3.3 cm DOPPLER AV Peak Velocity 126.7 cm/s AV Peak Gradient 6.4 mmHg AV Mean Velocity 86.3 cm/s AV Mean Gradient 3.3 mmHg AV Velocity Time Integral 18.2 cm LVOT Peak Velocity 105.9 cm/s LVOT Peak Gradient 4.5 mmHg LVOT Velocity Time Integral 14.9 cm LVOT Stroke Volume 61.8 cm??? LVOT Stroke Volume Index 27.8 ml/m??? LVOT Cardiac Index 2854.3 cm???/min???m??? AV Area Cont Eq vti 3.4 cm??? AV Area Cont Eq pk 3.5 cm??? MV Area PHT 5.2 cm??? Mitral E Point Velocity 53.2 cm/s Mitral A Point Velocity 64.0 cm/s Mitral E to A Ratio 0.8 MV Deceleration Time 147.1 ms PV Peak Velocity 110.8 cm/s PV Peak Gradient 4.9 mmHg FINDINGS Left Ventricle Left ventricular ejection fraction is estimated at 55-60 %. Left ventricular cavity size normal. Left ventricular wall thickness normal. No obvious regional wall motion abnormalities. Right Ventricle Right ventricle not well visualized. Unable to estimate the right ventricular systolic pressure. Right Atrium Right atrium not well visualized. Left Atrium Normal left atrial size. Mitral Valve Structurally normal mitral valve. No mitral stenosis, regurgitation or prolapse. Aortic Valve Trileaflet aortic valve. No aortic valve stenosis or regurgitation. Tricuspid Valve Structurally normal tricuspid valve. No tricuspid stenosis. No tricuspid regurgitation. Pulmonic Valve Pulmonic valve not well visualized. No pulmonic stenosis. No pulmonic regurgitation. Pericardium No pericardial effusion. Aorta Normal size aortic root and proximal ascending aorta. CONCLUSIONS LV function is normal with an ejection fraction of 55% Previewed by: Dr. Estiven Keyes MD (Electronically Signed) Final Date: 28 October 2023 17:29
== END | disposition home or self-care (01) ==
LOC: RADECHMAIN 15:05
PROVIDERS: ATTEND Internal Medicine Geriatric Medicine
DX: R06.02 Shortness of breath (principal)
CPT/HCPCS: 71046; 93306

== ENCOUNTER → 2024-01-02 | Day surgery (SDC) | payer OTHER ==
[2023-12-31 15:49] VITALS: BMI 43.9
[~2024-01-02] MED LIST changes: -HYDROmorphone 0.5 MG/0.5 ML SYRINGE IVP PRN; +LACTATED RINGERS 1,000 ML IV SCH; +LIDOCAINE 1% INJ 10MG/ML (20 ML MDV) ONE; +PROPOFOL 10 MG/ML 20 ML VIAL IV ONE; -SCOPOLAMINE 1 MG/72 HR PATCH TRANSDERM ONE; -droPERidol 5 MG/2 ML VIAL IVP ONE
[2024-01-02 07:22] VITALS: TEMP 97.3
[2024-01-02] MEDS: IV FLUID CONTINUATION 1,000 ML IV ONE (07:22)
--- NOTE | 2024-01-02 08:16 | P.PCN ---
Date of Procedure: 01/02/24 Procedure(s) Performed: BRIEF HISTORY: Patient is a 18-year-old pleasant white male scheduled for an elective colonoscopy as a part of evaluation of change in bowel habits for the last several years duration. PROCEDURE PERFORMED: Colonoscopy. PREOPERATIVE DIAGNOSIS: Change in bowel habits. IV sedation per Anesthesia. PROCEDURE: After informed consent was obtained, the patient, was brought into the endoscopy unit. IV sedation was administered by Anesthesia under continuous monitoring. Digital rectal examination was normal. Initially the Olympus CF-160 flexible video colonoscope was then inserted in the rectum, gradually advanced into the cecum without any difficulty. Careful examination was performed as the scope was gradually being withdrawn. Ileocecal valve and the appendiceal orifice were visualized and appeared normal. Prep was excellent. Mucosa of the cecum, ascending colon, transverse colon, descending colon, sigmoid colon, and rectum appeared normal. Retroflexion was performed in the rectum and no lesions were seen. The patient tolerated the procedure well. IMPRESSION: Normal-appearing colon from rectum to cecum with no evidence of colorectal neoplasia. RECOMMENDATIONS: Findings of this examination were discussed with the patient as well as his family. He was advised to continue with MiraLAX daily as well as high-fiber diet. Follow-up in the office in 2 to 3 weeks.
[2024-01-02 08:35] VITALS: BP 108/75; PULSE 86; RESP 16
[2024-01-09 11:46] LABS: Glucose,Whole Blood 92 mg/dL (70-110)
[2024-01-09 11:46] LABS: Glucose,Whole Blood 84 mg/dL (70-110)
== END ==
LOC: EEVIPCON 06:50 → ORWHC2ENDO 06:50
PROVIDERS: ATTEND Internal Medicine Gastroenterology
DX: R19.4 Change in bowel habit (principal); Z79.899 Other long term (current) drug therapy; Z79.84 Long term (current) use of oral hypoglycemic drugs
CPT/HCPCS: 45378

== ENCOUNTER 2024-06-06 09:09 | Emergency (ER) | payer OTHER ==
--- NOTE | 2024-06-06 09:32 | XR ---
EXAMINATION TYPE: XR chest 2V DATE OF EXAM: 06/06/2024 9:29 AM COMPARISON: Chest radiographs from 10/28/2023 TECHNIQUE: XR chest 2V Frontal and lateral views of the chest. CLINICAL INDICATION:Male, 18 years old with history of Cough; FINDINGS: Lungs/Pleura: There is no evidence of pleural effusion, focal consolidation, or pneumothorax. Pulmonary vascularity: Unremarkable. Heart/mediastinum: Cardiomediastinal silhouette is unremarkable. Musculoskeletal: No acute osseous pathology. IMPRESSION: No acute cardiopulmonary disease/process. [facility], , 06/06/2024 9:30 AM
--- NOTE | 2024-06-06 09:38 | ED ---
URI HPI - General Chief Complaint: Upper Respiratory Infection Stated Complaint: sore throat Time Seen by Provider: 06/06/24 09:14 Source: patient, RN notes reviewed Mode of arrival: ambulatory Limitations: no limitations - History of Present Illness Initial Comments: This is a 18-year-old male who presents to the emergency department for coughing, congestion, and a sore throat. States that it started 5 days ago. The cough is mildly productive. Denies any fevers/chills. He does have possible sick contacts. Denies any chest pain or shortness of breath. MD Complaint: cough, sore throat, nasal congestion - Related Data Home Medications Medication Instructions Recorded Confirmed Fenofibrate Nanocrystallized 145 mg PO QAM 05/02/23 01/02/24 [Fenofibrate] Omeprazole 20 mg PO QAM 05/02/23 01/02/24 Sertraline [Zoloft] 100 mg PO QAM 05/02/23 01/02/24 lisinopriL [Zestril] 20 mg PO QAM 05/19/23 01/02/24 metFORMIN HCL [metFORMIN HCL ER 1,000 mg PO QAM 05/19/23 01/02/24 Gastric] sitaGLIPtin [Januvia] 50 mg PO QAM 05/19/23 01/02/24 ARIPiprazole [Abilify] 15 mg PO DAILY 12/31/23 01/02/24 Metoprolol Succinate (ER) [Toprol 25 mg PO DAILY 12/31/23 01/02/24 Xl] Previous Rx's Medication Instructions Recorded Benzonatate [Tessalon Perle] 200 mg PO TID PRN #30 capsule 06/06/24 Allergies Allergy/AdvReac Type Severity Reaction Status Date / Time amoxicillin Allergy Rash/Hives Verified 06/06/24 09:13 Penicillins Allergy Rash/Hives Verified 06/06/24 09:13 Review of Systems ROS Statement: Those systems with pertinent positive or pertinent negative responses have been documented in the HPI. ROS Other: All systems not noted in ROS Statement are negative. Past Medical History Past Medical History: Diabetes Mellitus, GERD/Reflux, Hyperlipidemia, Hypertension Additional Past Medical History / Comment(s): Kidney stones. CHANGE IN BOWEL HABITS History of Any Multi-Drug Resistant Organisms: None Reported Past Surgical History: No Surgical Hx Reported Additional Past Surgical History / Comment(s): [place] teeth removed, kidney stone surgery. Past Anesthesia/Blood Transfusion Reactions: No Reported Reaction Past Psychological History: ADD/ADHD, Anxiety, Depression Smoking Status: Never smoker Past Alcohol Use History: None Reported Past Drug Use History: None Reported - Past Family History Mother Family Medical History: No Reported History General Exam Limitations: no limitations General appearance: alert, in no apparent distress Head exam: Present: atraumatic, normocephalic, normal inspection ENT exam: Present: other (Posterior pharyngeal erythema with tonsillar hypertrophy) Respiratory exam: Present: normal lung sounds bilaterally. Absent: respiratory distress, wheezes, rales, rhonchi, stridor Cardiovascular Exam: Present: regular rate, normal rhythm Neurological exam: Present: alert, oriented X3, CN II-XII intact Psychiatric exam: Present: normal affect, normal mood Skin exam: Present: warm, dry, intact, normal color. Absent: rash Course Vital Signs 06/06/24 06/06/24 06/06/24 09:10 10:29 11:01 Temperature 97.9 F 97.9 F 98.0 F Pulse Rate 114 H 86 90 Respiratory 18 22 22 Rate Blood Pressure 121/76 118/77 119/74 O2 Sat by Pulse 97 100 98 Oximetry Medical Decision Making - Medical Decision Making This is a 18-year-old male who presents to the emergency department for coughing, congestion, and a sore throat. Was pt. sent in by a medical professional or institution? @ -No Did you speak to anyone other than the patient for history? @ -No Did you review nursing and triage notes? @ -Yes, and I agree, it is accurate with regards to the patient's symptoms. Were old charts reviewed? @ -No Differential Diagnosis? @ -Differential Cough: Influenza, Covid, RSV, croup, allergic rhinitis, GERD, pneumonia, bronchitis, COPD, viral pharyngitis, streptococcal pharyngitis, this is not meant to be an all-inclusive list.] EKG interpreted by me (3pts min.)? @ -Not obtained X-rays interpreted by me (1pt min.)? @ -Chest x-ray obtained, my interpretation identifies no localized consolidations or infiltrates. CT interpreted by me (1pt min.)? @ -Not obtained U/S interpreted by me (1pt. min.)? @ -Not obtained What testing was considered but not performed? (CT, X-rays, U/S, labs)? Why? @ -None What meds were considered but not given? Why? @ -None Did you discuss the management of the patient with other professionals? @ -No Did you reconcile home meds? @ -No Was smoking cessation discussed for >3mins.? @ -No Was critical care preformed (if so, how long)? @ -No Were there social determinants of health that impacted care today? How? (Homelessness, low income, unemployed, alcoholism, drug addiction, transport ation, low edu. Level, literacy, decrease access to med. care, care home, rehab)? @ -No Was there de-escalation of care discussed even if they declined? (Discuss DNR or withdrawal of care, Hospice)? @ -No What co-morbidities impacted this encounter? (DM, HTN, Smoking, COPD, CAD, Cancer, CVA, Hep., AIDS, mental health diagnosis, sleep apnea, morbid obesity)? @ -None Was patient admitted / discharged? @ -Discharged. Patient positive for RSV. COVID and influenza testing negative. Chest x-ray reveals no acute process. Advised that treatment will largely aim at controlling his symptoms. Tesrekha Torres prescribed for any additional coughing. Advised ibuprofen and Tylenol as needed for fevers or discomfort. Patient discharged home in stable condition. Case discussed with ED attending Dr. Calle. Return precautions reviewed in depth, the patient is instructed to return to the emergency department with any new, worsening, or concerning symptoms. Patient verbalized understanding. Undiagnosed new problem with uncertain prognosis? @ -None Drug Therapy requiring intensive monitoring for toxicity (Heparin, Nitro, Insulin, Cardizem)? @ -None Were any procedures done? @ -None Diagnosis/symptom? @ -RSV Acute, or Chronic, or Acute on Chronic? @ -Acute Uncomplicated (without systemic symptoms) or Complicated (systemic symptoms)? @ -Uncomplicated Side effects of treatment? @ -None Exacerbation, Progression, or Severe Exacerbation] @ -Not applicable Poses a threat to life or bodily function? @ -No - Lab Data Lab Results 06/06/24 06/06/24 Range/Units 09:15 09:15 Influenza Type A (PCR) Not Detected (Not Detectd) Influenza Type B (PCR) Not Detected (Not Detectd) RSV (PCR) Detected A (Not Detectd) SARS-CoV-2 (PCR) Not Detected (Not Detectd) Group A Strep (PCR) NOT DETECTED (Not Detectd) - Radiology Data Radiology results: report reviewed, image reviewed Disposition Clinical Impression: RSV infection Disposition: HOME SELF-CARE Instructions (If sedation given, give patient instructions): Respiratory Syncytial Virus (ED) Additional Instructions: Return to the emergency department with any new, worsening, or concerning symptoms. You can try taking the Tessalon Perles up to every 8 hours as needed for coughing. Follow up with your primary care provider in 1-2 days. Prescriptions: Benzonatate [Tessalon Perle] 200 mg PO TID PRN #30 capsule PRN Reason: Cough Is patient prescribed a controlled substance at d/c from ED?: No Referrals: Aydee Donis MD [Primary Care Provider] - 1-2 days Time of Disposition: 10:49
[2024-06-06 10:09] LABS: Influenza A Not Detected (Not Detectd); Influenza B Not Detected (Not Detectd); RSV Detected (Not Detectd)
[2024-06-06 10:30] VITALS: RESP 22
[2024-06-06] MEDS: DEXAMETHASONE SOD PHOSPHATE 10 MG/ML 1 ML VIAL IM STA (10:35)
[2024-06-06 11:02] VITALS: BP 119/74; PULSE 90; TEMP 98
== END 2024-06-06 11:02 | disposition home or self-care (01) ==
LOC: EC 09:09
DX: J02.9 Acute pharyngitis, unspecified (principal); R05.9 Cough, unspecified; R09.81 Nasal congestion; B97.4 Respiratory syncytial virus as the cause of diseases classified elsewhere; Z88.0 Allergy status to penicillin
CPT/HCPCS: 87651; 87636; 71046; 99283; 96372; J1100